=== PATIENT | female | born 1990 | race Caucasian/White ===

== ENCOUNTER 2021-05-08 12:45 | Inpatient (IN) | payer OTHER ==
[~2021-05-08] VITALS: Ht 165.1 cm; Wt 81.2 kg
[2021-05-28] MEDS ORDERED: PRENATAL TABLE1 EAC1 PO (06:41)
[2021-05-28] MEDS ORDERED: VITAMIN C100 MG PO (06:42)
[2021-05-28] MEDS ORDERED: VITAMIN K100 MCG PO (06:42)
[2021-05-28] MEDS ORDERED: PROBIOTIC1 EAC2 (06:43)
== END 2021-05-30 12:03 | disposition home or self-care (01) | DRG 807 ==
LOC: SURH 05-22 12:45 → LDR 05-28 05:37 → SURG-SUITE 05-28 13:03
PROVIDERS: ADMIT Obstetrics & Gynecology; ATTEND Obstetrics & Gynecology
PROC: 10E0XZZ Delivery of Products of Conception, External Approach (ICD-10-PCS; principal; 2021-05-28)
PROC: 0W8NXZZ Division of Female Perineum, External Approach (ICD-10-PCS; 2021-05-28)
PROC: 10907ZC Drainage of Amniotic Fluid, Therapeutic from Products of Conception, Via Natural or Artificial Opening (ICD-10-PCS; 2021-05-28)
PROC: 4A1HXFZ Monitoring of Products of Conception, Cardiac Rhythm, External Approach (ICD-10-PCS; 2021-05-28)
DX: O80 Encounter for full-term uncomplicated delivery (principal); Z37.0 Single live birth; Z3A.40 40 weeks gestation of pregnancy; Z20.822 Contact with and (suspected) exposure to COVID-19